=== PATIENT | female | born 1975 | race Caucasian/White ===

== ENCOUNTER → 2019-11-13 | Outpatient (CLI) | payer SELFPAY ==
[2019-11-13 08:55] LABS: HEMATOCRIT 39.1 % (37.0-47.0); HEMOGLOBIN 13.2 g/dL (12.5-16.0); MEAN PLATELET VOLUME 8.6 fl (7.4-10.4); RED BLOOD COUNT 4.36 M/mm3 (4.10-5.30); RED CELL DISTRIBUTION WIDTH 12.6 % (11.5-14.5); WHITE BLOOD COUNT 6.2 K/mm3 (4.8-10.8)
[2019-11-13 09:25] LABS: ALBUMIN 4.3 g/dL (3.5-5.0); POTASSIUM 4.6 mmol/L (3.5-5.1); SODIUM 140 mmol/L (136-145)
[2019-11-13 09:26] LABS: CALCIUM 9.1 mg/dL (8.3-10.5)
[2019-11-13 09:27] LABS: GLUCOSE 91 mg/dL (65-105)
[2019-11-13 09:28] LABS: TOTAL PROTEIN 7.1 g/dL (6.4-8.3)
[2019-11-13 09:29] LABS: CARBON DIOXIDE 23 mmol/L (22-29); TOTAL BILIRUBIN 0.6 mg/dL (0.2-1.2)
[2019-11-13 09:33] LABS: AST-SGOT 14 U/L (5-34)
[2019-11-13 09:34] LABS: ALT/SGPT 8 U/L (0-55)
[2019-11-13 09:40] LABS: TROPONIN-I < 0.03 ng/mL (<0.030)
== END ==
LOC: RAD 08:28
PROVIDERS: Nurse Practitioner
DX: Z01.811 Encounter for preprocedural respiratory examination (principal); I45.10 Unspecified right bundle-branch block